=== PATIENT | female | born 1980 | race Two or more races ===

== ENCOUNTER 2025-01-04 19:42 | Emergency (ER) | payer MEDICAID ==
[~2025-01-04] VITALS: Ht 157.5 cm; Wt 62.6 kg
[~2025-01-04 19:42] MED LIST: PREN-129 OR
[2025-01-04 20:52] VITALS: BP 188/78; PULSE 95; RESP 15; TEMP 98.4; O2SAT 99
[2025-01-04] MEDS ORDERED: MOXI0.5D9 LEFTEYE (20:58)
[2025-01-04] MEDS: ERYTHROMY OPTH OINT 5mg/gm 1gm or 3.5gm tube OP ONE (21:16)
--- NOTE | 2025-01-05 11:26 | ED.PDOC ---
Eye-HPI HPI Comments PT PRESENTED TO ED FOR SOAP DETERGENT IN LEFT EYE X4 HOURS AGO. PT STATED SHE WAS WASHING CLOTHES WHEN SUBSTANTIAL AMOUNT OF SOAP FELL IN LEFT EYE. PT STATED SHE ATTEMPTED TO WASH EYE FOR APPROX. 30 MIN W/O RELIEF. DENIES VISION LOSS DOUBLE VISION OR CHANGE IN VISION. (+) EYE IRRITATION/SWELLING. GCS-15, ALL VSS. Chief Complaint: Eye Problem Time Seen by MD: 19:58 Primary Care Provider: CRISTINO Colón Notes: Nurses Notes, Medications, Allergies Allergies: Coded Allergies: NO KNOWN ALLERGIES (Unverified , 12/21/13) Home Meds Active Scripts Moxifloxacin Hydrochloride (Moxifloxacin) 0.5 % Mesfin, 1 DROP LEFTEYE TID for 7 Days, #2 ML Prov:BROCK RYAN [employer]ING [employer]ENDER 01/04/25 Reported Medications Vit W/ Ferrous Fumara () Tab, 1 OR, TAB 12/20/13 Information Source: Patient Mode of Arrival: Ambulatory Past Medical History PAST MEDICAL HISTORY: Denies Surgical History: Denies all surgeries AUDIO VISUAL SECRETARY History: No Pertinent AUDIO VISUAL SECRETARY History Family History Family History: Unobtainable Social History Smoker: Non-Smoker Alcohol: Denies ETOH Use Drugs: Denies Drug Use Lives In: Home All Other Systems: Reviewed and Negative (SEE HPI) Physical Exam General Appearance: No Apparent Distress, Normal HEENT: Normal ENT Inspection, Pharynx Normal, TMs Normal, Other (BILATERAL EYE HYPEREMIA NO NOTED DRAINAGE NO NOTED FOREIGN BODY) Neck: Full Range of Motion, Non-Tender, Normal, Normal Inspection Respiratory: Chest Non-Tender, Lungs Clear, No Accessory Muscle Use, No Respiratory Distress, Normal Breath Sounds Cardiovascular: No Edema, No JVD, No Murmur, No Gallop, Normal Peripheral Pulses, Regular Rate/Rhythm Breast Exam: Deferred Gastrointestinal: No Organomegaly, Non Tender, No Pulsatile Mass, Normal Bowel Sounds, Soft Genitalia: Deferred Pelvic: Deferred Rectal: Deferred Extremities: Normal range of motion Musculoskeletal : Apperance: Normal Neurologic: Alert, No Motor Deficits, Normal Affect, Normal Mood, No Sensory Deficits Cerebellar Function: Normal Reflexes: NOT DONE Skin: Dry, Normal Color, Warm Lymphatic: No Adenopathy Was a procedure done? Was a procedure done?: No EENT DIFF Eye: Allergic, Foreign Body-Conjunctiva, Foreign Body-Corneal, Foreign Body- Intraocular, Foreign Body-Lid, Iritis/Uveitis, Orbital Cellulits, Periorbital Cellulits X-Ray, Labs, Meds, VS Vital Signs Date Time Temp Pulse Resp B/P (MAP) Pulse Ox O2 Delivery O2 Flow Rate FiO2 01/04/25 20:52 95 15 99 Room Air* 0 21 01/04/25 20:52 98.4 95 18 188/78 (114) 99 98.4 01/04/25 19:43 98.0 97 16 147/113 100 98.0 Current Medications Medications (Trade) Dose Ordered Sig/Luke Route Start Time Stop Time Status Last Admin Erythromycin 1 applic ONCE ONCE OP 01/04/25 21:00 01/04/25 21:01 DC 01/04/25 21:16 X-Ray, Labs, Meds, VS Comment Script trial of ophthalmic antibiotic drops. Advised to take medications as prescribed side effects discussed. Advised to call in 2-3 days follow up with Ophthalmology if symptoms persist. ER return precautions given patient indicates understanding and agrees with discharge plan of care. Time of 1ST Reevaluation: 20:10 Reevaluation 1ST: Unchanged Time of 2ND Reevaluation: 20:56 Reevaluation 2ND: Improved Patient Education/Counseling: Diagnosis, Treatment, Need For Follow Up Family Education/Counseling: No Family Present SEPSIS Sepsis Screen Date sepsis recognized/suspect: Jan 04, 2025 Time Sepsis recognized/suspect: 1946 Recent Procedure: No On Antibiotic Therapy: No Respiratory Rate >20: No Heart Rate >90: No Temp<36 C (96.8 F) or >38.3 C: No SBP <90 or MAP <65 mmHG: No New Acute Mental Status Change: No Is the patient on CPAP, BIPAP,: No Vital Signs Date Time Temp Pulse Resp B/P (MAP) Pulse Ox O2 Delivery O2 Flow Rate FiO2 01/04/25 20:52 95 15 99 Room Air* 0 21 01/04/25 20:52 98.4 95 18 188/78 (114) 99 98.4 01/04/25 19:43 98.0 97 16 147/113 100 98.0 Medications Medications Dose Ordered Sig/Luke Route Start Time Stop Time Status Last Admin Dose Admin Erythromycin 1 applic ONCE ONCE OP 01/04/25 21:00 01/04/25 21:01 DC 01/04/25 21:16 Departure 1 Departure Time of Disposition: 20:56 Impression: Primary Impression: Chemical burn of right eye Disposition: HOME / SELF CARE / HOMELESS Condition: Stable e-Prescriptions Moxifloxacin Hydrochloride (Moxifloxacin) 0.5 % Mesfin 1 DROP LEFTEYE TID for 7 Days, #2 ML Prov: BROCK RYAN 01/04/25 Discharged With: Self Critical Care Note Critical Care Time?: No Stability Stability form required: No BROCK RYAN Jan 04, 2025 20:55
== END 2025-01-04 21:15 | disposition home or self-care (01) ==
LOC: ER 19:46
DX: T26.91XA Corrosion of right eye and adnexa, part unspecified, initial encounter (principal); Z79.899 Other long term (current) drug therapy; W19.XXXA Unspecified fall, initial encounter; Y93.89 Activity, other specified; Y92.89 Other specified places as the place of occurrence of the external cause; Y99.8 Other external cause status